=== PATIENT | female | born 1955 | race Caucasian/White ===

== ENCOUNTER 2019-06-09 14:43 | Inpatient (IN) ==
[2019-06-09] MEDS ORDERED: ALBUTEROL/IPRATROPIUM 3 ML NEB RESP TX STA ×2 (15:30→18:49)
[2019-06-09 15:38] LABS: Basophils # 0.1 10*3/uL (0.0-0.2); Basophils % 0.4 % (0.0-0.8); Hematocrit 49.5 VOL% (35.7-47.0); Hemoglobin 16.6 GM/DL (12.0-16.0); Immature Granulocytes % 0.9 %; Immature Granulocytes Absolute 0.12 #; Lymphocytes # 2.6 10*3/uL (1.4-4.0); Lymphocytes % 18.8 % (21.3-54.2); Mean Corpuscular HGB Conc 33.5 GM/DL (32-36); Mean Corpuscular Volume 97.6 FL (87-102); Mean Platelet Volume 9.9 FL (9.6-12.0); Monocytes % 13.4 % (1.7-12.7); Neutrophils % 66.5 % (38.7-73.9); Platelet Count 193 T/CUMM (130-400); Red Blood Count 5.07 MC/CUMM (3.8-5.5); Red Cell Distribution Width 14.1 % (9.3-17.3); White Blood Count 13.7 T/CUMM (4-12)
[2019-06-09 15:49] LABS: INR 1.1; Partial Thromboplastin Time 31.3 SECS (20.8-36.0)
[2019-06-09 15:55] LABS: Albumin 3.1 G/DL (3.4-5.0); Bilirubin,Total 1.1 MG/DL (0.2-1.0); Calcium 8.9 MG/DL (8.5-10.1); Osmolality,Calculated 260.1 MOS/KG (273-304); Total Protein 7.9 G/DL (6.4-8.3)
[2019-06-09 16:07] LABS: Apearance,Urine CLOUDY (Clear); Bacteria,Urine Occasional /HPF (Few); Bilirubin,Urine Negative (Negative); Blood, Urine Moderate mg/dL (Negative); Glucose,Urine (UA) Negative (Negative); Hyaline Casts,Urine 35 /LPF (0-3); Ketones,Urine Negative (Negative); Mucus,Urine Many /LPF (Occasional); Nitrite,Urine Negative (Negative); Protein,Urine 30 MG/DL; RBC,Urine 8 /HPF (0-4); Squamous Epithelial Cell,Urine Occasional /HPF (0-10); Urine Color Yellow (Yellow); Urine Specific Gravity 1.021 (1.001-1.035); WBC,Urine 5 /HPF (0-6)
[2019-06-09] MEDS ORDERED: CYCLOBENZAPRINE 10 MG TABLET PO PRN (16:11)
[2019-06-09] MEDS ORDERED: BENZONATATE 100 MG CAPSULE PO PRN (16:11)
[2019-06-09 16:24] LABS: Ferritin 441.7 ng/ml (8-252); Troponin I < 0.015 NG/ML (0.00-0.045)
[2019-06-09] MEDS ORDERED: ONDANSETRON 4 MG/2 ML VIAL IV PRN (18:49)
[2019-06-09] MEDS ORDERED: ALBUTEROL 2.5 MG/3 ML NEB RESP TX STA (18:49)
[2019-06-09] MEDS: SODIUM CHLORIDE 0.9% 1,000 ML IV SCH (21:29)
[2019-06-09] MEDS: MEROPENEM 500 MG in SODIUM CHLORIDE 0.9% 100 ML IV SCH (21:29)
[2019-06-09] MEDS: ACETAMINOPHEN 325 MG TABLET PO PRN (21:29)
[2019-06-09] MEDS: DOCUSATE SODIUM 100 MG CAPSULE PO SCH (21:48)
[2019-06-10] MEDS: MEROPENEM 500 MG in SODIUM CHLORIDE 0.9% 100 ML IV SCH (04:47)
[2019-06-10] MEDS: LEVOTHYROXINE 75 MCG TABLET PO SCH (06:29)
[2019-06-10] MEDS: SODIUM CHLORIDE 0.9% 1,000 ML IV SCH ×4 (06:31→23:52)
[2019-06-10] MEDS: MELOXICAM 7.5 MG TABLET PO SCH (08:52)
[2019-06-10] MEDS: PANTOPRAZOLE 40 MG TABLET PO SCH (08:52)
[2019-06-10] MEDS: amLODIPine 5 MG TABLET PO SCH (08:52)
[2019-06-10] MEDS: DOCUSATE SODIUM 100 MG CAPSULE PO SCH ×2 (08:53→21:20)
[2019-06-10] MEDS ORDERED: FENOFIBRATE 48 MG TABLET PO SCH (09:00)
[2019-06-10] MEDS ORDERED: METOPROLOL TARTRATE 50 MG TABLET PO SCH (09:00)
[2019-06-10] MEDS ORDERED: CITALOPRAM 20 MG TABLET PO SCH (09:00)
[2019-06-10] MEDS ORDERED: ROSUVASTATIN 10 MG TABLET PO SCH (09:00)
[2019-06-10] MEDS ORDERED: LOSARTAN 50 MG TABLET PO SCH (09:00)
[2019-06-10] MEDS ORDERED: FOLIC ACID 1 MG TABLET PO SCH (09:00)
[2019-06-10] MEDS: POTASSIUM CHLORIDE 20 MEQ TABLET PO SCH (12:31)
[2019-06-10] MEDS: MAGNESIUM CHLORIDE 64 MG TABLET PO SCH (12:31)
[2019-06-10] MEDS: CEFEPIME 1,000 MG in SODIUM CHLORIDE 0.9% 100 ML IV SCH ×2 (13:50→21:21)
[2019-06-10] MEDS: ACETAMINOPHEN 325 MG TABLET PO PRN (15:26)
[2019-06-10] MEDS: BENZONATATE 100 MG CAPSULE PO SCH (21:21)
[2019-06-11] MEDS: CEFEPIME 1,000 MG in SODIUM CHLORIDE 0.9% 100 ML IV SCH ×3 (05:49→22:04)
[2019-06-11] MEDS: LEVOTHYROXINE 75 MCG TABLET PO SCH (05:53)
[2019-06-11] MEDS: SODIUM CHLORIDE 0.9% 1,000 ML IV SCH ×2 (08:30→22:05)
[2019-06-11] MEDS: MELOXICAM 7.5 MG TABLET PO SCH (08:36)
[2019-06-11] MEDS: MAGNESIUM CHLORIDE 64 MG TABLET PO SCH (08:36)
[2019-06-11] MEDS: POTASSIUM CHLORIDE 20 MEQ TABLET PO SCH (08:37)
[2019-06-11] MEDS: amLODIPine 5 MG TABLET PO SCH (08:37)
[2019-06-11] MEDS: ACETAMINOPHEN 325 MG TABLET PO PRN (08:37)
[2019-06-11] MEDS: PANTOPRAZOLE 40 MG TABLET PO SCH (08:37)
[2019-06-11] MEDS: guaiFENesin/CODEINE 5 ML LIQUID PO PRN ×2 (08:37→20:33)
[2019-06-11] MEDS: DOCUSATE SODIUM 100 MG CAPSULE PO SCH ×2 (08:38→20:33)
[2019-06-11] MEDS: BENZONATATE 100 MG CAPSULE PO SCH ×2 (09:54→20:33)
[2019-06-11] MEDS: HYDROcodone/CHLORPHENIRAMINE ER 5 ML UDCUP PO SCH ×2 (10:01→20:54)
[2019-06-11] MEDS: methylPREDNISolone SOD SUC 40 MG/1 ML VIAL IV SCH ×2 (10:01→16:13)
[2019-06-11] MEDS: ALBUTEROL/IPRATROPIUM 3 ML NEB RESP TX SCH ×4 (10:45→23:00)
[2019-06-12] MEDS: methylPREDNISolone SOD SUC 40 MG/1 ML VIAL IV SCH ×3 (00:16→16:45)
[2019-06-12] MEDS: ALBUTEROL/IPRATROPIUM 3 ML NEB RESP TX SCH ×5 (03:30→19:40)
[2019-06-12 05:19] LABS: Basophils % 0.1 % (0.0-0.8); Lymphocytes # 0.6 10*3/uL (1.4-4.0); Platelet Count 168 T/CUMM (130-400)
[2019-06-12] MEDS: CEFEPIME 1,000 MG in SODIUM CHLORIDE 0.9% 100 ML IV SCH ×3 (05:27→17:29)
[2019-06-12] MEDS: SODIUM CHLORIDE 0.9% 1,000 ML IV SCH (05:29)
[2019-06-12] MEDS: LEVOTHYROXINE 75 MCG TABLET PO SCH (05:30)
[2019-06-12 05:45] LABS: Alanine Aminotransferase 48 U/L (13-56); Albumin 2.3 G/DL (3.4-5.0); Alkaline Phosphatase 51 U/L (45-117); Aspartate Amino Transferase 56 U/L (0-37); Bilirubin,Total < 0.39 MG/DL (0.2-1.0); Blood Urea Nitrogen 8 MG/DL (7-18); Calcium 8.8 MG/DL (8.5-10.1); Estimated Glom Filtration Rate 94 ML/MIN; Glucose 165 MG/DL (74-106); Osmolality,Calculated 280.4 MOS/KG (273-304)
[2019-06-12 05:49] LABS: Hematocrit 37.7 VOL% (35.7-47.0); Immature Granulocytes % 0.7 %; Immature Granulocytes Absolute 0.06 #; Lymphocytes % 7.4 % (21.3-54.2); Mean Corpuscular HGB Conc 33.4 GM/DL (32-36); Mean Corpuscular Volume 97.9 FL (87-102); Mean Platelet Volume 10.3 FL (9.6-12.0); Monocytes % 3.3 % (1.7-12.7); Neutrophils % 88.5 % (38.7-73.9); Red Cell Distribution Width 14.2 % (9.3-17.3)
[2019-06-12 05:53] LABS: Hemoglobin 12.6 GM/DL (12.0-16.0); Red Blood Count 3.85 MC/CUMM (3.8-5.5); White Blood Count 8.4 T/CUMM (4-12)
[2019-06-12] MEDS: ENOXAPARIN 40 MG/0.4 ML SYRINGE SUBCUT SCH (09:34)
[2019-06-12] MEDS: HYDROcodone/CHLORPHENIRAMINE ER 5 ML UDCUP PO SCH ×2 (09:36→20:35)
[2019-06-12] MEDS: amLODIPine 5 MG TABLET PO SCH (09:37)
[2019-06-12] MEDS: PANTOPRAZOLE 40 MG TABLET PO SCH (09:37)
[2019-06-12] MEDS: DOCUSATE SODIUM 100 MG CAPSULE PO SCH ×2 (09:37→20:35)
[2019-06-12] MEDS: MELOXICAM 7.5 MG TABLET PO SCH (09:37)
[2019-06-12] MEDS: POTASSIUM CHLORIDE 20 MEQ TABLET PO SCH (09:37)
[2019-06-12] MEDS: MAGNESIUM CHLORIDE 64 MG TABLET PO SCH (09:37)
[2019-06-12] MEDS: BENZONATATE 100 MG CAPSULE PO SCH ×2 (09:37→20:35)
[2019-06-12] MEDS ORDERED: FUROSEMIDE 40 MG/4 ML VIAL IV ONE (14:56)
[2019-06-13] MEDS: methylPREDNISolone SOD SUC 40 MG/1 ML VIAL IV SCH ×3 (00:31→16:11)
[2019-06-13] MEDS: CEFEPIME 1,000 MG in SODIUM CHLORIDE 0.9% 100 ML IV SCH ×4 (00:31→17:52)
[2019-06-13] MEDS: ALBUTEROL/IPRATROPIUM 3 ML NEB RESP TX SCH ×6 (00:47→19:11)
[2019-06-13] MEDS: LEVOTHYROXINE 75 MCG TABLET PO SCH (05:34)
[2019-06-13] MEDS ORDERED: MAGNESIUM HYDROXIDE SUSP 30 ML UDCUP PO PRN (09:09)
[2019-06-13] MEDS: BENZONATATE 100 MG CAPSULE PO SCH ×2 (09:58→21:43)
[2019-06-13] MEDS: HYDROcodone/CHLORPHENIRAMINE ER 5 ML UDCUP PO SCH ×2 (09:59→21:43)
[2019-06-13] MEDS: MELOXICAM 7.5 MG TABLET PO SCH (09:59)
[2019-06-13] MEDS: PANTOPRAZOLE 40 MG TABLET PO SCH (10:00)
[2019-06-13] MEDS: amLODIPine 5 MG TABLET PO SCH (10:00)
[2019-06-13] MEDS: POTASSIUM CHLORIDE 20 MEQ TABLET PO SCH (10:00)
[2019-06-13] MEDS: DOCUSATE SODIUM 100 MG CAPSULE PO SCH ×2 (10:00→21:43)
[2019-06-13] MEDS: ENOXAPARIN 40 MG/0.4 ML SYRINGE SUBCUT SCH (10:00)
[2019-06-13] MEDS: MAGNESIUM CHLORIDE 64 MG TABLET PO SCH (10:00)
[2019-06-13] MEDS: BUDESONIDE/FORMOTEROL 160-4.5 INHALER 6 GM INH SCH ×2 (12:33→21:43)
[2019-06-14] MEDS: CEFEPIME 1,000 MG in SODIUM CHLORIDE 0.9% 100 ML IV SCH ×2 (00:01→05:55)
[2019-06-14] MEDS: methylPREDNISolone SOD SUC 40 MG/1 ML VIAL IV SCH ×2 (00:02→08:40)
[2019-06-14] MEDS: ALBUTEROL/IPRATROPIUM 3 ML NEB RESP TX SCH ×3 (04:10→07:25)
[2019-06-14 05:34] LABS: Basophils % 0.1 % (0.0-0.8); Hematocrit 40.1 VOL% (35.7-47.0); Hemoglobin 13.2 GM/DL (12.0-16.0); Immature Granulocytes Absolute 0.09 #; Lymphocytes # 0.6 10*3/uL (1.4-4.0); Lymphocytes % 6.7 % (21.3-54.2); Mean Corpuscular HGB Conc 32.9 GM/DL (32-36); Mean Corpuscular Volume 99.3 FL (87-102); Mean Platelet Volume 10.1 FL (9.6-12.0); Monocytes % 4.5 % (1.7-12.7); Neutrophils % 87.7 % (38.7-73.9); Platelet Count 208 T/CUMM (130-400); Red Blood Count 4.04 MC/CUMM (3.8-5.5); Red Cell Distribution Width 14.2 % (9.3-17.3); White Blood Count 9.2 T/CUMM (4-12)
[2019-06-14] MEDS: LEVOTHYROXINE 75 MCG TABLET PO SCH (05:49)
[2019-06-14 06:05] LABS: Calcium 9.2 MG/DL (8.5-10.1); Osmolality,Calculated 280.4 MOS/KG (273-304)
[2019-06-14 07:44] VITALS: BP 159/80
[2019-06-14] MEDS: HYDROcodone/CHLORPHENIRAMINE ER 5 ML UDCUP PO SCH (08:37)
[2019-06-14] MEDS: PANTOPRAZOLE 40 MG TABLET PO SCH (08:38)
[2019-06-14] MEDS: MELOXICAM 7.5 MG TABLET PO SCH (08:38)
[2019-06-14] MEDS: POTASSIUM CHLORIDE 20 MEQ TABLET PO SCH (08:38)
[2019-06-14] MEDS: BENZONATATE 100 MG CAPSULE PO SCH (08:38)
[2019-06-14] MEDS: amLODIPine 5 MG TABLET PO SCH (08:38)
[2019-06-14] MEDS: DOCUSATE SODIUM 100 MG CAPSULE PO SCH (08:38)
[2019-06-14] MEDS: MAGNESIUM CHLORIDE 64 MG TABLET PO SCH (08:38)
[2019-06-14] MEDS: ENOXAPARIN 40 MG/0.4 ML SYRINGE SUBCUT SCH (08:43)
[2019-06-14] MEDS: BUDESONIDE/FORMOTEROL 160-4.5 INHALER 6 GM INH SCH (09:02)
== END 2019-06-14 11:43 | disposition home or self-care (01) | DRG 194 ==
LOC: N.ED 14:43 → N.EDINP 17:15 → N.5E 17:34
PROVIDERS: ADMIT Family Medicine; ATTEND Family Medicine